=== PATIENT | male | born 1955 | race African-American/Black ===

== ENCOUNTER 2017-11-23 12:25 | Emergency (ER) | payer MEDICARE, MEDICAID ==
[~2017-11-23] VITALS: Ht 175.3 cm; Wt 71.7 kg
[2017-11-23] MEDS ORDERED: ALBUTEROL SULF8.5 GM INH ×2 (12:41→13:20)
[2017-11-23] MEDS ORDERED: FLOVENT2 PUFF1 INH (12:41)
--- NOTE | 2017-11-23 13:18 | Emergency Room Report ---
History of Present Illness General Chief Complaint: Upper Respiratory Illness Present Illness HPI 62 YO Male Pt. presents to the ED c/o Productive cough times one month with moderate sputum production. Patient reports history of COPD he denies cardiac history or swelling of the lower extremities. Patient reports intermittent fevers and chills. After multiple back to back episodes of coughing he will have some tenderness in the chest. Otherwise no pain at rest. Has required albuterol inhalers in the past. Denies CP, Palpitations, LOC, AMS, dizziness, Changes in Vision, Sensation, paresthesias, or a sudden severe headache. Allergies: Coded Allergies: No Known Allergies (Unverified , 11/23/17) Patient History Past Medical History: see triage record, COPD Past Surgical History: none Pertinent Family History: none Immunizations: UTD Reviewed Nursing Documentation: PMH: Agreed, PSxH: Agreed Nursing Documentation-PMH Hx Asthma: Yes Review of Systems All Other Systems: negative except mentioned in HPI Physical Exam Vital Signs Date Time Temp Pulse Resp B/P (MAP) Pulse Ox O2 Delivery O2 Flow Rate FiO2 11/23/17 12:35 61 16 123/75 98 Room Air Sp02 EP Interpretation: reviewed, normal General Appearance: no apparent distress, alert, GCS 15, non-toxic Head: normocephalic, atraumatic ENT: hearing grossly normal, normal pharynx, no angioedema, normal voice, TMs + canals normal, nasal congestion Neck: full range of motion, no meningismus, no bony tend, supple/symm/no masses Respiratory: chest non-tender, lungs clear, normal breath sounds, no respiratory distress, speaking full sentences Cardiovascular #1: regular rate, rhythm, no edema, normal capillary refill Musculoskeletal: back normal, gait/station normal, normal range of motion, non- tender Neurologic: alert, oriented x3, responsive, motor strength/tone normal, sensory intact, normal gait, speech normal Skin: normal color, no rash, warm/dry, well hydrated Medical Decision Making PA Attestation Dr. noel is my supervising Physician whom patient management has been discussed with. Diagnostic Impression: Primary Impression: Atypical pneumonia Additional Impression: COPD with acute bronchitis ER Course Pt. presents to the ED c/o Productive cough times one month with moderate sputum production. Patient reports history of COPD he denies cardiac history or swelling of the lower extremities. Patient reports intermittent fevers and chills. After multiple back to back episodes of coughing he will have some tenderness in the chest. Otherwise no pain at rest. Has required albuterol inhalers in the past. Denies CP, Palpitations, LOC, AMS, dizziness, Changes in Vision, Sensation, paresthesias, or a sudden severe headache. Ddx considered but are not limited to URI, pneumonia, PE, strep pharyngitis, meningitis, atypical pneumonia, COPD, emphysema just to name a few. Vital signs: Pt. is afebrile, the remaining VS are WNL H&PE are most consistent with URI- in the presence of chronic lung disease, minimal wheezes/Rhonchi . no meningeal signs, oropharynx is not involved. ORDERS: none required at this time, the diagnosis is clinical ED INTERVENTIONS: None required at this time. DISCHARGE: At this time pt. is stable for d/c to home. Will provide printed patient care instructions, and any necessary prescriptions. Care plan and follow up instructions have been discussed with the patient prior to discharge. Chest X-Ray Diagnostic Results Chest X-Ray Diagnostic Results : Chest X-Ray Ordered: Yes # of Views/Limited/Complete: 1 View Indication: Shortness of Breath EP Interpretation: Yes PA Xray: Interpretation reviewed, by supervising MD, and agrees with findings. Interpretation: no consolidation, no pneumothorax, no acute cardiopulmonary disease Impression: Other - COPD signs such as hyper-inflated lung space, and flattened diagphragm. Last Vital Signs Date Time Temp Pulse Resp B/P (MAP) Pulse Ox O2 Delivery O2 Flow Rate FiO2 11/23/17 12:35 61 16 123/75 98 Room Air Disposition: HOME, SELF-CARE Condition: Stable Scripts Levofloxacin* (LEVAQUIN*) 750 Mg Tablet 750 MG ORAL DAILY for 7 Days, #7 TAB Prov: Mai Randall P.A. 11/23/17 Albuterol Sulfate* (ALBUTEROL SULFATE MDI*) 8.5 Gm Hfa.aer.ad 2 PUFF INH Q6H, #1 INH 0 Refills Prov: Mai Randall P.A. 11/23/17 Guaifenesin (Guaifenesin) 1,200 Mg Tab.er.12h 1200 MG PO BID, #20 TAB Prov: Mai Randall P.A. 11/23/17 Codeine/Promethazine Hcl* (PROMETHAZINE-CODEINE SYRUP*) 118 Ml Syrup 5 ML ORAL Q6H Y for For Cough, #118 ML 0 Refills Prov: Mai Randall 11/23/17 Patient Instructions: Upper Respiratory Infection, Adult Additional Instructions: Take medications as directed. Follow up with a Primary Care Provider in 3-5 days, even if your symptoms have resolved. --Please review list of primary care clinics, if you do not already have a primary care provider Return sooner to ED if new symptoms occur, or current symptoms become worse. Do not drink alcohol, drive, or operate heavy machinery while taking Cough Syrup as this may cause drowsiness. - Please note that this Emergency Department Report was dictated using [employer] mobility [employer] technology software, occasionally this can lead to erroneous entry secondary to interpretation by the dictation equipment. Mai Randall Nov 23, 2017 13:18
[2017-11-23] MEDS ORDERED: LEVAQUIN750 MG ORAL (13:20)
[2017-11-23] MEDS ORDERED: GUAIFENESIN1200 MG PO (13:20)
[2017-11-23] MEDS ORDERED: PROMETHAZINE-C118 M1 ORAL (13:20)
[2017-11-23 13:25] VITALS: BP 120/76
--- NOTE | 2017-11-23 21:48 | Diagnostic Imaging Report ---
Indication: Chest pain Comparison: None A single view chest radiograph was obtained. Findings: Bones are slightly osteopenic. Heart size is normal. Lungs are clear. Fusion hardware noted within the lumbar spine. IMPRESSION: No acute disease
== END 2017-11-23 15:06 | disposition home or self-care (01) ==
LOC: EMR 13:01
DX: J18.9 Pneumonia, unspecified organism (principal); J20.9 Acute bronchitis, unspecified; J44.0 Chronic obstructive pulmonary disease with (acute) lower respiratory infection
CPT/HCPCS: 71045; 99283

== ENCOUNTER 2018-10-10 09:37 | Emergency (ER) | payer MEDICARE, MEDICAID ==
[~2018-10-10] VITALS: Ht 175.3 cm; Wt 72.6 kg
[~2018-10-10 09:37] MED LIST: ALBUTEROL SULF8.5 GM INH; FLOVENT2 PUFF1 INH; GUAIFENESIN1200 MG PO; LEVAQUIN750 MG ORAL; PROMETHAZINE-C118 M1 ORAL
[2018-10-10 09:47] VITALS: BP 131/86
[2018-10-10] MEDS ORDERED: Albuterol/Ipratropium 3ml neb HHN ONE ×2 (10:15→10:45)
[2018-10-10 10:27] VITALS: BP 131/86
[2018-10-10 11:30] VITALS: BP 135/87
[2018-10-10] MEDS ORDERED: ADULT WAL-100 MG/5 M ORAL (11:50)
[2018-10-10] MEDS ORDERED: ZITHROMAX250 MG ORAL (11:50)
[2018-10-10] MEDS ORDERED: PREDNISONE20 MG ORAL (11:50)
[2018-10-10] MEDS ORDERED: Albuterol ud Inhalation HHN ONE (12:00)
--- NOTE | 2018-10-10 12:19 | Emergency Room Report ---
History of Present Illness General Chief Complaint: Dyspnea/Respdistress Source: Patient Present Illness HPI Patient is a 63-year-old male presented after increased difficulty breathing. Patient gradual onset of symptoms. He reports having increased work of breathing. Patient reports the recently quitting smoking. He had prior history of COPD. He poorly takes multiple inhalers. He reports having increased chest tightness. He reports having similar symptoms in the past.Patient denies any fever. Allergies: Coded Allergies: No Known Allergies (Unverified , 11/23/17) Patient History Past Medical History: see triage record Reviewed Nursing Documentation: PMH: Agreed; PSxH: Agreed Nursing Documentation-PM Past Medical History: No History, Except For Hx Asthma: Yes Hx COPD: Yes - emphysema Review of Systems All Other Systems: negative except mentioned in HPI Physical Exam Vital Signs Date Time Temp Pulse Resp B/P (MAP) Pulse Ox O2 Delivery O2 Flow Rate FiO2 10/10/18 09:40 97.9 95 23 134/91 95 Room Air 10/10/18 10:24 21 Sp02 EP Interpretation: reviewed, normal General Appearance: normal inspection, alert, GCS 15, mild distress, Chronically Ill Head: atraumatic ENT: normal ENT inspection, hearing grossly normal, normal voice Neck: normal inspection, full range of motion, supple, no bony tend Respiratory: normal inspection, no respiratory distress, no retraction, no wheezing, wheezing Cardiovascular #1: regular rate, rhythm, no edema Gastrointestinal: normal inspection, normal bowel sounds, non tender, soft, no guarding, no hernia Genitourinary: no CVA tenderness Musculoskeletal: normal inspection, back normal, normal range of motion Neurologic: normal inspection, alert, oriented x3, responsive, brush hand III-XII nml as tested, motor strength/tone normal, speech normal Psychiatric: normal inspection, judgement/insight normal, mood/affect normal Skin: normal inspection, normal color, no rash Medical Decision Making Diagnostic Impression: Primary Impression: COPD exacerbation ER Course Patient presented for cough. Differential diagnosis included but was not limited to bronchitis, pneumonia, pulmonary embolism, pericarditis, asthma, foreign body. Patient has a benign exam and does not appear to require any laboratory testing at this time. Patient given breathing treatments with improvement in symptoms.The patient is advised to follow up with primary care doctor in 1-2 days. Patient is advised to return if any worsening condition or if any changes in status that are concerning. This report is dictated with [employer] furnace door tender software which may occasionally lead to discrepancies related to use of this software. Last Vital Signs Date Time Temp Pulse Resp B/P (MAP) Pulse Ox O2 Delivery O2 Flow Rate FiO2 10/10/18 11:56 89 15 100 Room Air 21 10/10/18 09:47 98.2 131/86 Status: improved Disposition: HOME, SELF-CARE Condition: Stable Scripts Azithromycin* (ZITHROMAX*) 250 Mg Tablet 250 MG ORAL DAILY, #6 TAB 0 Refills Take two tables once daily for 1 day, then one tablet once daily for 4 days. Prov: Joshua Mobley MD 10/10/18 Prednisone* (PREDNISONE*) 20 Mg Tablet 60 MG ORAL DAILY, #12 TAB Prov: Joshua Mobley MD 10/10/18 Guaifenesin* (ADULT WAL-TUSSIN*) 100 Mg/5 Ml Liquid 10 ML ORAL Q4H, #120 ML Prov: Joshua Mobley MD 10/10/18 Patient Instructions: Chronic Obstructive Pulmonary Disease Exacerbation Joshua Mobley MD Oct 10, 2018 12:19
[2018-10-10 12:26] VITALS: BP 128/87
== END 2018-10-10 12:26 | disposition home or self-care (01) ==
LOC: EMR 10:20
DX: J44.1 Chronic obstructive pulmonary disease with (acute) exacerbation (principal); Z87.891 Personal history of nicotine dependence
CPT/HCPCS: 94640; 94664; 99284; J7512; J7620

== ENCOUNTER 2018-11-02 12:39 | Inpatient (IN) | payer MEDICARE, MEDICAID ==
[~2018-11-02] VITALS: Ht 170.2 cm; Wt 72.6 kg
[~2018-11-02 12:39] MED LIST changes: +ADULT WAL-100 MG/5 M ORAL; +PREDNISONE20 MG ORAL; +ZITHROMAX250 MG ORAL
[2018-11-02 12:50] VITALS: BP 142/97
[2018-11-02] MEDS ORDERED: Albuterol/Ipratropium 3ml neb ONE (12:52)
--- NOTE | 2018-11-02 12:58 | Emergency Room Report ---
History of Present Illness General Chief Complaint: Dyspnea/Respdistress Source: Patient, Medical Record Present Illness HPI The patient is a 63-year-old male presented after increased difficulty breathing. Patient prior history of COPD. He reports having acute onset of worsening shortness of breath today. He denies any vomiting.Patient had increased nonproductive cough. He reported having increased shortness of breath for the past 1 hour. Allergies: Coded Allergies: No Known Allergies (Unverified , 11/23/17) Patient History Past Medical History: COPD Reviewed Nursing Documentation: PMH: Agreed; PSxH: Agreed Nursing Documentation-PMH Past Medical History: No History, Except For Hx Asthma: Yes Hx COPD: Yes - emphysema Review of Systems All Other Systems: negative except mentioned in HPI Physical Exam Vital Signs Date Time Temp Pulse Resp B/P (MAP) Pulse Ox O2 Delivery O2 Flow Rate FiO2 11/02/18 12:45 98.2 91 18 145/79 94 Room Air General Appearance: alert, GCS 15, moderate distress Eyes: bilateral eye PERRL ENT: hearing grossly normal, normal pharynx Neck: full range of motion, supple Respiratory: respiratory distress, accessory muscle use, wheezing Cardiovascular #1: normal peripheral pulses, regular rate, rhythm, no edema Gastrointestinal: normal inspection Musculoskeletal: normal inspection, back normal Neurologic: normal inspection, alert, oriented x3, responsive, heating worker III-XII nml as tested Psychiatric: normal inspection, judgement/insight normal Skin: normal inspection Medical Decision Making Diagnostic Impression: Primary Impression: COPD exacerbation ER Course Patient presented for shortness of breath. Differential included but was not limited to anemia, pneumonia, pneumothorax, myocardial infarction, pericardial effusion, congestive heart failure, acidosis. Because of complexity of patient' s case laboratory testing and imaging studies were ordered. Chest x-ray 1 view interpreted by radiology showed emphysematous changes without evidence of pneumonia. EKG showed normal sinus rhythm without acute ST or T wave changes. Patient was given breathing treatments as well as IV Solu-Medrol. Patient was subsequently noted to have improvement in his symptoms. Patient continued to have some wheezing and shortness of breath. Dr. Miguel Perera was contacted for inpatient management Labs Test 11/02/18 13:00 11/02/18 13:11 11/02/18 13:35 White Blood Count 5.6 K/UL (4.8-10.8) Red Blood Count 5.38 M/UL (4.70-6.10) Hemoglobin 14.6 G/DL (14.2-18.0) Hematocrit 46.2 % (42.0-52.0) Mean Corpuscular Volume 86 FL (80-99) Mean Corpuscular Hemoglobin 27.1 PG (27.0-31.0) Mean Corpuscular Hemoglobin Concent 31.6 G/DL (32.0-36.0) Red Cell Distribution Width 13.1 % (11.6-14.8) Platelet Count 203 K/UL (150-450) Mean Platelet Volume 7.9 FL (6.5-10.1) Neutrophils (%) (Auto) 45.1 % (45.0-75.0) Lymphocytes (%) (Auto) 38.5 % (20.0-45.0) Monocytes (%) (Auto) 8.0 % (1.0-10.0) Eosinophils (%) (Auto) 6.9 % (0.0-3.0) Basophils (%) (Auto) 1.5 % (0.0-2.0) Prothrombin Time 10.5 SEC (9.30-11.50) Prothromb Time International Ratio 1.0 (0.9-1.1) Activated Partial Thromboplast Time 27 SEC (23-33) Sodium Level 145 MMOL/L (136-145) Potassium Level 4.3 MMOL/L (3.5-5.1) Chloride Level 109 MMOL/L (98-107) Carbon Dioxide Level 26 MMOL/L (21-32) Anion Gap 10 mmol/L (5-15) Blood Urea Nitrogen 6 mg/dL (7-18) Creatinine 0.9 MG/DL (0.55-1.30) Estimat Glomerular Filtration Rate > 60 mL/min (>60) Glucose Level 106 MG/DL (74-106) Calcium Level 9.0 MG/DL (8.5-10.1) Total Bilirubin 0.7 MG/DL (0.2-1.0) Aspartate Amino Transf (AST/SGOT) 17 U/L (15-37) Alanine Aminotransferase (ALT/SGPT) 23 U/L (12-78) Alkaline Phosphatase 80 U/L (46-116) Troponin I 0.000 ng/mL (0.000-0.056) Total Protein 7.7 G/DL (6.4-8.2) Albumin 3.7 G/DL (3.4-5.0) Globulin 4.0 g/dL Albumin/Globulin Ratio 0.9 (1.0-2.7) Arterial Blood pH 7.462 (7.350-7.450) Arterial Blood Partial Pressure CO2 32.3 mmHg (35.0-45.0) Arterial Blood Partial Pressure O2 99.1 mmHg (75.0-100.0) Arterial Blood HCO3 22.6 mmol/L (22.0-26.0) Arterial Blood Oxygen Saturation 97.8 % (95-100) Arterial Blood Base Excess -0.4 (-2-2) Rudolph Test Positive Urine Color Pale yellow Urine Appearance Clear Urine pH 6 (4.5-8.0) Urine Specific [place] 1.015 (1.005-1.035) Urine Protein Negative (NEGATIVE) Urine Glucose (UA) Negative (NEGATIVE) Urine Ketones Negative (NEGATIVE) Urine Blood Negative (NEGATIVE) Urine Nitrite Negative (NEGATIVE) Urine Bilirubin Negative (NEGATIVE) Urine Urobilinogen Normal MG/DL (0.0-1.0) Urine Leukocyte Esterase 1+ (NEGATIVE) Urine RBC 0 /HPF (0 - 0) Urine WBC 0-2 /HPF (0 - 0) Urine Squamous Epithelial Cells Occasional /LPF Urine Bacteria Occasional /HPF (NONE) Last Vital Signs Date Time Temp Pulse Resp B/P (MAP) Pulse Ox O2 Delivery O2 Flow Rate FiO2 11/02/18 12:45 98.2 91 18 145/79 94 Room Air Status: improved Disposition: ADMITTED INPATIENT Condition: Stable Joshua Mobley MD Nov 02, 2018 12:58
[2018-11-02] MEDS ORDERED: Albuterol/Ipratropium 3ml neb HHN ONE ×2 (13:00→14:15)
[2018-11-02] MEDS ORDERED: UNOBMED (13:00)
[2018-11-02] MEDS ORDERED: Solu-MEDROL 125mg Inj IVP ONE (13:00)
[2018-11-02 13:31] LABS: BASOPHILS % (AUTO) 1.5 % (0.0-2.0); EOSINOPHILS % (AUTO) 6.9 % (0.0-3.0); HEMATOCRIT 46.2 % (42.0-52.0); HEMOGLOBIN 14.6 G/DL (14.2-18.0); LYMPHOCYTES % (AUTO) 38.5 % (20.0-45.0); MEAN CORPUSCULAR VOLUME 86 FL (80-99); NEUTROPHILS % (AUTO) 45.1 % (45.0-75.0); PLATELET COUNT 203 K/UL (150-450); RED BLOOD COUNT 5.38 M/UL (4.70-6.10); RED CELL DISTRIBUTION WIDTH 13.1 % (11.6-14.8); WHITE BLOOD COUNT 5.6 K/UL (4.8-10.8)
[2018-11-02 13:48] LABS: ANION GAP 10 mmol/L (5-15); BLOOD UREA NITROGEN 6 mg/dL (7-18); CARBON DIOXIDE 26 MMOL/L (21-32); CHLORIDE 109 MMOL/L (98-107); CREATININE 0.9 MG/DL (0.55-1.30); POTASSIUM 4.3 MMOL/L (3.5-5.1); SODIUM 145 MMOL/L (136-145)
[2018-11-02 13:52] LABS: ALANINE AMINOTRANSFERASE 23 U/L (12-78); ALBUMIN 3.7 G/DL (3.4-5.0); ALBUMIN/GLOBULIN RATIO 0.9 (1.0-2.7); ALKALINE PHOSPHATASE 80 U/L (46-116); ASPARTATE AMINO TRANSFERASE 17 U/L (15-37); BILIRUBIN,TOTAL 0.7 MG/DL (0.2-1.0)
[2018-11-02 14:06] LABS: APPEARANCE,URINE CLEAR; BILIRUBIN, URINE NEGATIVE (NEGATIVE); COLOR,URINE PALE YELLOW; GLUCOSE, URINE (UA) NEGATIVE (NEGATIVE); KETONES,URINE NEGATIVE (NEGATIVE); LEUKOCYTE ESTERASE ,URINE 1+ (NEGATIVE); NITRITE,URINE NEGATIVE (NEGATIVE); PH,URINE 6 (4.5-8.0); PROTEIN,URINE NEGATIVE (NEGATIVE); UROBILINOGEN,URINE NORMAL MG/DL (0.0-1.0)
[2018-11-02] MEDS ORDERED: Albuterol 90mcg Inhaler 8gm INH ONE (14:15)
--- NOTE | 2018-11-02 14:36 | Diagnostic Imaging Report ---
Indication: Shortness of breath Technique: One view of the chest Comparison: 11/23/2017 Findings: Lungs and pleural spaces are clear. Heart size is normal there is a surgical hardware in the upper lumbar spine . No significant interim change. Impression: No acute process
[2018-11-02 15:00] VITALS: BP 120/90
[2018-11-02 17:00] VITALS: BP 124/90
[2018-11-02] MEDS ORDERED: ROXICODONE30 M1 ORAL (17:47)
[2018-11-02] MEDS ORDERED: ANORO ELLIPTA1 EACH PO (17:47)
[2018-11-02] MEDS ORDERED: OXYCODONE HCL10 MG ORAL (17:47)
[2018-11-02] MEDS ORDERED: PREDNISONE10 MG ORAL (17:47)
[2018-11-02 18:30] VITALS: BP 149/86
[2018-11-02] MEDS ORDERED: Albuterol/Ipratropium 3ml neb HHN PRN (18:30)
[2018-11-02] MEDS: Albuterol/Ipratropium 3ml neb HHN SCH (20:38)
[2018-11-02] MEDS: Heparin 5000 units/ml inj SUBQ SCH (21:17)
[2018-11-02] MEDS ORDERED: Norco 5mg/325mg tab ORAL PRN (23:45)
[2018-11-03] MEDS: Solu-MEDROL 40mg Inj IVP SCH ×5 (00:05→23:55)
--- NOTE | 2018-11-03 03:15 | History and Physical Report ---
DATE OF ADMISSION: 11/02/2018 HISTORY OF PRESENT ILLNESS: The patient is admitted for COPD exacerbation breathing treatment. The patient complained of shortness of breath for two weeks with wheezing, has history of COPD and also worsening productive cough, has a long history of smoking in the past as well as a history of drug and alcohol abuse in the past. The patient does have shortness of breath worsening with cough, worsening wheezing and worsening productive cough, admitted for COPD exacerbation. PAST MEDICAL HISTORY: Significant for COPD, GERD. PAST SURGICAL HISTORY: Left hip replacement, back surgery, hernia repair, left knee surgery. MEDICATIONS: Fluticasone and prednisone at times p.r.n., albuterol inhaler. ALLERGIES: No known allergies. SOCIAL HISTORY: History of smoking, history of drug abuse, history of alcohol abuse. FAMILY HISTORY: Noncontributory. REVIEW OF SYSTEMS: HEENT: Denies headaches. RESPIRATORY: Reports shortness of breath and productive cough for two weeks and wheezing for two weeks. CARDIOVASCULAR: Denies chest pain. GASTROINTESTINAL: Reports heartburn. Denies nausea, vomiting, or diarrhea. EXTREMITIES: Does have chronic pain syndrome. CENTRAL NERVOUS SYSTEMS: Denies change in vision or speech pattern. PHYSICAL EXAMINATION: VITAL SIGNS: Temperature 97, pulse 75, and blood pressure 124/90. HEENT: PERRLA. NECK: Supple. No lymphadenopathy. CHEST: Bibasilar wheezing. CARDIOVASCULAR: Regular rate and rhythm. No murmurs or extra sounds. GASTROINTESTINAL: Soft, nontender. EXTREMITIES: No edema. Reflexes equal on both sides. Moves all four extremities. LABORATORY AND DIAGNOSTIC DATA: Chest x-ray shows hyperinflation. WBC of 5.6, hemoglobin of 14.6, and platelets of 203. Sodium 145, potassium 4.3, BUN of 6, creatinine of 0.9, and glucose of 106. ASSESSMENT/PLAN: 1. Chronic obstructive pulmonary disease exacerbation. 2. Respiratory insufficiency. 3. Shortness of breath. I have asked Dr. Renteria, Dr. Mann, Dr. Julian Miller to see the patient for the above condition, treatment of COPD exacerbation. Antibiotics per Dr. Julian Miller. Miguel Wyman M.D. DR: Felisa JOB#: [id number] CC:
[2018-11-03] MEDS: Albuterol/Ipratropium 3ml neb HHN SCH ×6 (03:47→23:16)
[2018-11-03 08:00] VITALS: BP 137/89
[2018-11-03] MEDS: Heparin 5000 units/ml inj SUBQ SCH ×2 (09:00→20:41)
--- NOTE | 2018-11-03 09:03 | Consultation ---
History of Present Illness General Date patient seen: Nov 03, 2018 Chief Complaint: Present Illness Allergies: Coded Allergies: No Known Allergies (Unverified , 11/23/17) Medication History Scheduled Albuterol Sulfate* (Albuterol Sulfate Mdi*), 2 PUFF INH Q4H, (Reported) Fluticasone Propionate (Flovent Hfa), 2 PUFFS INH BID, (Reported) Umeclidinium Brm/Vilanterol Tr (Anoro Ellipta 62.5-25 Mcg INH), 1 INH PO DAILY, (Reported) Scheduled PRN Oxycodone Hcl* (Roxicodone*), 30 MG ORAL Q6H PRN for For Pain, (Reported) Miscellaneous Medications Prednisone* (Prednisone*), 10 MG ORAL, (Reported) Discontinued Medications Azithromycin* (Zithromax*), 250 MG ORAL DAILY Discontinued Reason: Therapy completed Codeine/Promethazine Hcl* (Promethazine-Codeine Syrup*), 5 ML ORAL Q6H PRN for For Cough Discontinued Reason: Therapy completed Guaifenesin (Guaifenesin), 1,200 MG PO BID Discontinued Reason: Therapy completed Guaifenesin* (Adult Wal-Tussin*), 10 ML ORAL Q4H Discontinued Reason: Therapy completed Levofloxacin* (Levaquin*), 750 MG ORAL DAILY Discontinued Reason: Therapy completed Oxycodone Hcl* (Oxycodone Hcl*), 10 MG ORAL Q6H PRN for For Pain, (Reported) Discontinued Reason: Prescription changed Prednisone* (Prednisone*), 60 MG ORAL DAILY Discontinued Reason: Medication dose changed Patient History Healthcare decision maker Resuscitation status Full Code Advanced Directive on File No Physical Exam Last 24 Hour Vital Signs Date Time Temp Pulse Resp B/P (MAP) Pulse Ox O2 Delivery O2 Flow Rate FiO2 11/03/18 07:13 87 19 100 Room Air 11/03/18 07:02 82 17 99 Room Air 11/03/18 04:27 14 11/03/18 03:53 88 20 99 Room Air 21 11/03/18 03:43 92 20 97 Room Air 11/03/18 00:11 94 11/02/18 22:56 Nasal Cannula 2.0 11/02/18 20:47 98 20 99 Room Air 21 11/02/18 20:33 103 22 96 Room Air 21 11/02/18 19:52 85 11/02/18 18:34 75 11/02/18 18:30 98.2 82 18 149/86 (107) 96 11/02/18 17:54 97.0 75 16 124/90 98 Room Air 21 11/02/18 17:00 75 16 124/90 98 Room Air 11/02/18 15:00 70 25 120/90 96 Room Air 11/02/18 14:26 22 100 Room Air 21 11/02/18 13:24 24 99 Room Air 21 11/02/18 13:10 24 98 Room Air 21 11/02/18 13:10 24 Room Air 21 11/02/18 12:50 97.0 88 37 142/97 100 Room Air 11/02/18 12:50 88 37 Room Air 11/02/18 12:45 98.2 91 18 145/79 94 Room Air Intake and Output 11/02/18 11/03/18 19:00 07:00 Intake Total 100 ml Balance 100 ml Intake Oral 0 ml IV Total 100 ml # Voids 1 1 Laboratory Tests Test 11/02/18 13:00 11/02/18 13:11 11/02/18 13:35 White Blood Count 5.6 K/UL (4.8-10.8) Red Blood Count 5.38 M/UL (4.70-6.10) Hemoglobin 14.6 G/DL (14.2-18.0) Hematocrit 46.2 % (42.0-52.0) Mean Corpuscular Volume 86 FL (80-99) Mean Corpuscular Hemoglobin 27.1 PG (27.0-31.0) Mean Corpuscular Hemoglobin Concent 31.6 G/DL (32.0-36.0) L Red Cell Distribution Width 13.1 % (11.6-14.8) Platelet Count 203 K/UL (150-450) Mean Platelet Volume 7.9 FL (6.5-10.1) Neutrophils (%) (Auto) 45.1 % (45.0-75.0) Lymphocytes (%) (Auto) 38.5 % (20.0-45.0) Monocytes (%) (Auto) 8.0 % (1.0-10.0) Eosinophils (%) (Auto) 6.9 % (0.0-3.0) H Basophils (%) (Auto) 1.5 % (0.0-2.0) Prothrombin Time 10.5 SEC (9.30-11.50) Prothromb Time International Ratio 1.0 (0.9-1.1) Activated Partial Thromboplast Time 27 SEC (23-33) Sodium Level 145 MMOL/L (136-145) Potassium Level 4.3 MMOL/L (3.5-5.1) Chloride Level 109 MMOL/L (98-107) H Carbon Dioxide Level 26 MMOL/L (21-32) Anion Gap 10 mmol/L (5-15) Blood Urea Nitrogen 6 mg/dL (7-18) L Creatinine 0.9 MG/DL (0.55-1.30) Estimat Glomerular Filtration Rate > 60 mL/min (>60) Glucose Level 106 MG/DL (74-106) Calcium Level 9.0 MG/DL (8.5-10.1) Total Bilirubin 0.7 MG/DL (0.2-1.0) Aspartate Amino Transf (AST/SGOT) 17 U/L (15-37) Alanine Aminotransferase (ALT/SGPT) 23 U/L (12-78) Alkaline Phosphatase 80 U/L (46-116) Troponin I 0.000 ng/mL (0.000-0.056) Total Protein 7.7 G/DL (6.4-8.2) Albumin 3.7 G/DL (3.4-5.0) Globulin 4.0 g/dL Albumin/Globulin Ratio 0.9 (1.0-2.7) L Arterial Blood pH 7.462 (7.350-7.450) Arterial Blood Partial Pressure CO2 32.3 mmHg (35.0-45.0) L Arterial Blood Partial Pressure O2 99.1 mmHg (75.0-100.0) Arterial Blood HCO3 22.6 mmol/L (22.0-26.0) Arterial Blood Oxygen Saturation 97.8 % (95-100) Arterial Blood Base Excess -0.4 (-2-2) Rudolph Test Positive Urine Color Pale yellow Urine Appearance Clear Urine pH 6 (4.5-8.0) Urine Specific [place] 1.015 (1.005-1.035) Urine Protein Negative (NEGATIVE) Urine Glucose (UA) Negative (NEGATIVE) Urine Ketones Negative (NEGATIVE) Urine Blood Negative (NEGATIVE) Urine Nitrite Negative (NEGATIVE) Urine Bilirubin Negative (NEGATIVE) Urine Urobilinogen Normal MG/DL (0.0-1.0) Urine Leukocyte Esterase 1+ (NEGATIVE) H Urine RBC 0 /HPF (0 - 0) Urine WBC 0-2 /HPF (0 - 0) Urine Squamous Epithelial Cells Occasional /LPF Urine Bacteria Occasional /HPF (NONE) Microbiology Date/Time Source Procedure Growth Status 11/02/18 13:00 Nasal Nares Influenza Types A,B Antigen (LACY) - Final Complete Height (Feet): 5 Height (Inches): 7.00 Weight (Pounds): 160 Medications Current Medications Medications (Trade) Dose Ordered Sig/Santos Route PRN Reason Start Time Stop Time Status Last Admin Dose Admin Acetaminophen (Tylenol) 650 mg Q6H PRN ORAL Mild Pain/Temp > 100.5 11/02/18 18:15 12/02/18 18:14 Acetaminophen/ Hydrocodone Bitart ([place] 5/325) 1 tab Q4H PRN ORAL Moderate Pain (Pain Scale 4-6) 11/02/18 23:45 11/09/18 23:44 11/03/18 00:11 Albuterol/ Ipratropium (Albuterol/ Ipratropium) 3 ml Q4H PRN HHN Shortness of Breath 11/02/18 18:30 11/07/18 18:29 Albuterol/ Ipratropium (Albuterol/ Ipratropium) 3 ml Q4HRT HHN 11/02/18 23:00 11/07/18 22:59 11/03/18 07:02 Doxycycline Monohydrate (Vibramycin) 100 mg EVERY 12 HOURS ORAL 11/02/18 21:00 11/09/18 20:59 11/02/18 21:16 Heparin Sodium (Porcine) (Heparin 5000 units/ml) 5,000 units EVERY 12 HOURS SUBQ 11/02/18 21:00 12/02/18 20:59 11/02/18 21:17 Methylprednisolone Sodium Succinate (Solu-MEDROL) 40 mg EVERY 6 HOURS IVP 11/03/18 00:00 12/03/18 00:00 11/03/18 05:36 Assessment/Plan Assessment/Plan (1) Lumbar DDD (2) Lumbar Spondylosis (3) Lumbar Radiculopathy (4) Left hip pain h/o THR seen dictated Eladio Alexandra Nov 03, 2018 09:03
[2018-11-03] MEDS: HYDROcodone/Acetamin 10/325 tab ORAL PRN ×2 (09:22→20:02)
[2018-11-03 12:00] VITALS: BP 149/79
--- NOTE | 2018-11-03 14:20 | Consultation ---
History of Present Illness General Chief Complaint: Dyspnea/Respdistress Present Illness HPI 63 yo male with hx of anxiety patient complained of shortness of breath for two weeks with wheezing, has history of COPD and also worsening productive cough, has a long history of smoking in the past as well as a history of drug and alcohol abuse in the past. the pt cont to have anxiety and mood swings. the pt has cognitive impairment which is mild. no si/hi, the pt c/o pain. he has poor insight. reluctant to take psych meds Allergies: Coded Allergies: No Known Allergies (Unverified , 11/23/17) Medication History Scheduled Albuterol Sulfate* (Albuterol Sulfate Mdi*), 2 PUFF INH Q4H, (Reported) Fluticasone Propionate (Flovent Hfa), 2 PUFFS INH BID, (Reported) Umeclidinium Brm/Vilanterol Tr (Anoro Ellipta 62.5-25 Mcg INH), 1 INH PO DAILY, (Reported) Scheduled PRN Oxycodone Hcl* (Roxicodone*), 30 MG ORAL Q6H PRN for For Pain, (Reported) Miscellaneous Medications Prednisone* (Prednisone*), 10 MG ORAL, (Reported) Discontinued Medications Azithromycin* (Zithromax*), 250 MG ORAL DAILY Discontinued Reason: Therapy completed Codeine/Promethazine Hcl* (Promethazine-Codeine Syrup*), 5 ML ORAL Q6H PRN for For Cough Discontinued Reason: Therapy completed Guaifenesin (Guaifenesin), 1,200 MG PO BID Discontinued Reason: Therapy completed Guaifenesin* (Adult Wal-Tussin*), 10 ML ORAL Q4H Discontinued Reason: Therapy completed Levofloxacin* (Levaquin*), 750 MG ORAL DAILY Discontinued Reason: Therapy completed Oxycodone Hcl* (Oxycodone Hcl*), 10 MG ORAL Q6H PRN for For Pain, (Reported) Discontinued Reason: Prescription changed Prednisone* (Prednisone*), 60 MG ORAL DAILY Discontinued Reason: Medication dose changed Patient History History Provided By: Patient, Medical Record, PMD Healthcare decision maker Resuscitation status Full Code Advanced Directive on File No Past Medical/Surgical History Past Medical/Surgical History: (1) Dyspnea (2) COPD exacerbation Review of Systems Psychiatric: Reports: anxiety, emotional problems Physical Exam General Appearance: no apparent distress, alert, mild distress Neurologic: oriented x 3, responsive, depressed affect Last 24 Hour Vital Signs Date Time Temp Pulse Resp B/P (MAP) Pulse Ox O2 Delivery O2 Flow Rate FiO2 11/03/18 12:00 101 11/03/18 11:41 84 17 99 Room Air 21 11/03/18 11:31 85 22 99 Room Air 21 11/03/18 09:00 Room Air 11/03/18 08:00 101 11/03/18 08:00 97.5 92 18 137/89 (105) 96 11/03/18 07:13 87 19 100 Room Air 21 11/03/18 07:02 82 17 99 Room Air 21 11/03/18 04:27 14 11/03/18 03:53 88 20 99 Room Air 21 11/03/18 03:43 92 20 97 Room Air 21 11/03/18 00:11 94 11/02/18 22:56 Nasal Cannula 2.0 11/02/18 20:47 98 20 99 Room Air 21 11/02/18 20:33 103 22 96 Room Air 21 11/02/18 19:52 85 11/02/18 18:34 75 11/02/18 18:30 98.2 82 18 149/86 (107) 96 11/02/18 17:54 97.0 75 16 124/90 98 Room Air 21 11/02/18 17:00 75 16 124/90 98 Room Air 11/02/18 15:00 70 25 120/90 96 Room Air 11/02/18 14:26 22 100 Room Air 21 Intake and Output 11/02/18 11/03/18 19:00 07:00 Intake Total 100 ml Balance 100 ml Intake Oral 0 ml IV Total 100 ml # Voids 1 1 Height (Feet): 5 Height (Inches): 7.00 Weight (Pounds): 160 Medications Current Medications Medications (Trade) Dose Ordered Sig/Santos Route PRN Reason Start Time Stop Time Status Last Admin Dose Admin Acetaminophen (Tylenol) 650 mg Q6H PRN ORAL Mild Pain/Temp > 100.5 11/02/18 18:15 12/02/18 18:14 Acetaminophen/ Hydrocodone Bitart ([place] 10/325) 1 tab Q4H PRN ORAL For moderate Pain 11/03/18 09:15 11/10/18 09:14 11/03/18 09:22 Albuterol/ Ipratropium (Albuterol/ Ipratropium) 3 ml Q4H PRN HHN Shortness of Breath 11/02/18 18:30 11/07/18 18:29 Albuterol/ Ipratropium (Albuterol/ Ipratropium) 3 ml Q4HRT HHN 11/02/18 23:00 11/07/18 22:59 11/03/18 11:30 Doxycycline Monohydrate (Vibramycin) 100 mg EVERY 12 HOURS ORAL 11/02/18 21:00 11/09/18 20:59 11/03/18 09:15 Heparin Sodium (Porcine) (Heparin 5000 units/ml) 5,000 units EVERY 12 HOURS SUBQ 11/02/18 21:00 12/02/18 20:59 11/02/18 21:17 Methylprednisolone Sodium Succinate (Solu-MEDROL) 40 mg EVERY 6 HOURS IVP 11/03/18 00:00 12/03/18 00:00 11/03/18 12:11 Assessment/Plan Problem List: (1) anxiety d/o (2) Polysubstance dependence ICD Codes: F19.20 - Other psychoactive substance dependence, uncomplicated SNOMED: 05893304 Status: unchanged Assessment/Plan the pt was provided with ro/st ativan prn the pt was educated about smoking risks Dmitry Meza MD Nov 03, 2018 14:20
[2018-11-03 16:00] VITALS: BP 132/88
--- NOTE | 2018-11-03 18:01 | Cardiology Report ---
APPROVED REPORT EKG Measurement Heart [id number] Normal sinus rhythm Normal ECG
[2018-11-03 20:00] VITALS: BP 144/90
--- NOTE | 2018-11-03 21:27 | General Progress Note ---
Assessment/Plan Problem List: (1) COPD exacerbation ICD Codes: J44.1 - Chronic obstructive pulmonary disease with (acute) exacerbation SNOMED: 105836120 (2) Polysubstance dependence ICD Codes: F19.20 - Other psychoactive substance dependence, uncomplicated SNOMED: 43546632 (3) anxiety d/o (4) Dyspnea ICD Codes: R06.00 - Dyspnea, unspecified SNOMED: 591895409 Status: progressing Assessment/Plan copd exac nebs steriod per pulmonary still wheezing still has sob Subjective Respiratory: Reports: shortness of breath, SOB with excertion, wheezing Allergies: Coded Allergies: No Known Allergies (Unverified , 11/23/17) Objective Last 24 Hour Vital Signs Date Time Temp Pulse Resp B/P (MAP) Pulse Ox O2 Delivery O2 Flow Rate FiO2 11/03/18 20:05 93 20 99 Room Air 21 11/03/18 20:00 98.4 86 18 144/90 (108) 96 11/03/18 20:00 86 11/03/18 19:56 92 20 Room Air 21 11/03/18 19:55 92 20 98 Room Air 21 11/03/18 16:00 97.1 101 20 132/88 (103) 99 11/03/18 16:00 99 11/03/18 15:35 85 21 99 Room Air 21 11/03/18 15:25 89 21 99 Room Air 21 11/03/18 12:00 98.0 99 20 149/79 (102) 95 11/03/18 12:00 101 11/03/18 11:41 84 17 99 Room Air 21 11/03/18 11:31 85 22 99 Room Air 21 11/03/18 09:00 Room Air 11/03/18 08:00 101 11/03/18 08:00 97.5 92 18 137/89 (105) 96 11/03/18 07:13 87 19 100 Room Air 21 11/03/18 07:02 82 17 99 Room Air 21 11/03/18 04:27 14 11/03/18 03:53 88 20 99 Room Air 21 11/03/18 03:43 92 20 97 Room Air 21 11/03/18 00:11 94 11/02/18 22:56 Nasal Cannula 2.0 Intake and Output 11/02/18 11/03/18 18:59 06:59 Intake Total 100 ml Balance 100 ml Intake Oral 0 ml IV Total 100 ml # Voids 1 1 Height (Feet): 5 Height (Inches): 7.00 Weight (Pounds): 160 Neck: supple Cardiovascular: normal rate Respiratory/Chest: expiratory wheezing Miguel Wyman MD Nov 03, 2018 21:27
--- NOTE | 2018-11-03 23:25 | Pulmonology Progress Note ---
Assessment/Plan Assessment/Plan Pulmonary Consultation (For Dr Mann) HPI The patient is a 63-year-old male presented after increased difficulty breathing. Patient prior history of COPD. He reports having acute onset of worsening shortness of breath today. He denies any vomiting. No chest pain, no hemoptysis Allergies: No Known Allergies Past Medical History: COPD/Asthma, GERD Hx Asthma: Yes Hx COPD: Yes - emphysema Physical Exam HEENT: NCAT, JVP 6cm, moist mm Chest: Reduced BS bilaterally Heart: Hs1, Hs2, RRR Abdomen: SNTND Extrem: Normal DIRECTOR OF ACCOUNTS PAYABLE: Intact Labs noted CXR: nil acute Impression: COPD Exaccerbation GERD Plan: Continue IV Steroids HHN O2 PRN PPX Subjective ROS Limited/Unobtainable: No Respiratory: Reports: shortness of breath Allergies: Coded Allergies: No Known Allergies (Unverified , 11/23/17) Objective Last 24 Hour Vital Signs Date Time Temp Pulse Resp B/P (MAP) Pulse Ox O2 Delivery O2 Flow Rate FiO2 11/03/18 23:16 102 20 97 Room Air 21 11/03/18 21:00 Room Air 11/03/18 20:05 93 20 99 Room Air 21 11/03/18 20:00 98.4 86 18 144/90 (108) 96 11/03/18 20:00 86 11/03/18 19:56 92 20 Room Air 21 11/03/18 19:55 92 20 98 Room Air 21 11/03/18 16:00 97.1 101 20 132/88 (103) 99 11/03/18 16:00 99 11/03/18 15:35 85 21 99 Room Air 21 11/03/18 15:25 89 21 99 Room Air 21 11/03/18 12:00 98.0 99 20 149/79 (102) 95 11/03/18 12:00 101 11/03/18 11:41 84 17 99 Room Air 21 11/03/18 11:31 85 22 99 Room Air 21 11/03/18 09:00 Room Air 11/03/18 08:00 101 11/03/18 08:00 97.5 92 18 137/89 (105) 96 11/03/18 07:13 87 19 100 Room Air 21 11/03/18 07:02 82 17 99 Room Air 21 12/19/18 04:27 14 11/03/18 03:53 88 20 99 Room Air 21 11/03/18 03:43 92 20 97 Room Air 21 11/03/18 00:11 94 Intake and Output 11/02/18 11/03/18 18:59 06:59 Intake Total 100 ml Balance 100 ml Intake Oral 0 ml IV Total 100 ml # Voids 1 1 Microbiology Date/Time Source Procedure Growth Status 11/02/18 13:00 Nasal Nares Influenza Types A,B Antigen (LACY) - Final Complete Current Medications Medications (Trade) Dose Ordered Sig/Santos Route PRN Reason Start Time Stop Time Status Last Admin Dose Admin Acetaminophen (Tylenol) 650 mg Q6H PRN ORAL Mild Pain/Temp > 100.5 11/02/18 18:15 12/02/18 18:14 Acetaminophen/ Hydrocodone Bitart ([place] 10/325) 1 tab Q4H PRN ORAL For moderate Pain 11/03/18 09:15 11/10/18 09:14 11/03/18 20:02 Albuterol/ Ipratropium (Albuterol/ Ipratropium) 3 ml Q4H PRN HHN Shortness of Breath 11/02/18 18:30 11/07/18 18:29 Albuterol/ Ipratropium (Albuterol/ Ipratropium) 3 ml Q4HRT HHN 11/02/18 23:00 11/07/18 22:59 11/03/18 23:16 Doxycycline Monohydrate (Vibramycin) 100 mg EVERY 12 HOURS ORAL 11/02/18 21:00 11/09/18 20:59 11/03/18 20:39 Heparin Sodium (Porcine) (Heparin 5000 units/ml) 5,000 units EVERY 12 HOURS SUBQ 11/02/18 21:00 12/02/18 20:59 11/03/18 20:41 Methylprednisolone Sodium Succinate (Solu-MEDROL) 40 mg EVERY 6 HOURS IVP 11/03/18 00:00 12/03/18 00:00 11/03/18 17:56 David Schwartz MD Nov 03, 2018 23:25
[2018-11-04] VITALS: BP 156/74
--- NOTE | 2018-11-04 | Consultation ---
DATE OF CONSULTATION: 11/03/2018 INFECTIOUS DISEASE CONSULTATION CONSULTING PHYSICIAN: Julian Miller M.D. PRIMARY ATTENDING PHYSICIAN: Miguel Wyman M.D. REASON FOR CONSULT: Chronic obstructive pulmonary disease exacerbation. HISTORY OF PRESENT ILLNESS: The patient is a 63-year-old male, admitted yesterday because of shortness of breath. The patient has history of chronic obstructive pulmonary disease. Shortness of breath is acute onset. It started yesterday. The patient did not have any fever or significant coughing. PAST MEDICAL HISTORY: Significant for COPD, emphysema, had left hip replacement after knee ligament surgery, had hernia repair, and has had two back surgeries. MEDICATIONS: Hydrocodone, Solu-Medrol, albuterol ipratropium inhaler, doxycycline, heparin, and Tylenol. ALLERGIES: No known drug allergies. SOCIAL HISTORY: The patient is single. Extensive history of smoking, quit three months ago. He has history of drug and alcohol abuse, quit years ago. REVIEW OF SYSTEMS: No fever. No chills. No runny nose. No sore throat. Shortness of breath that is more with exertion. No abdominal pain. No problem passing urine. VACCINATION HISTORY: The patient states that he had flu shots and pneumonia vaccine. PHYSICAL EXAMINATION: VITAL SIGNS: Temperature 99.5, pulse 84, and blood pressure 137/89. GENERAL APPEARANCE: No acute distress. HEAD AND NECK: [place] conjunctiva. No oral lesion. HEART: normal rate. LUNGS: Clear with decreased sounds bilaterally. ABDOMEN: Soft and nontender. EXTREMITIES: He has no edema. LABORATORY AND DIAGNOSTIC DATA: Labs, UA was negative for nitrites, , positive for leukocyte esterase, and wbc's 0 to 2. WBC 5.6, hemoglobin 14.6, hematocrit 46.2, and platelets 203,000. Chest x-ray, no acute process. IMPRESSION: Chronic obstructive pulmonary disease exacerbation. The patient has history of emphysema. He has history of multiple surgeries including left hip replacement and back surgery. RECOMMENDATIONS: Continue with doxycycline. We will follow up the cultures. At the end of my exam, I thank, Dr. Wyman, for involving me in the care of this patient. Julian Miller M.D. DR: BROOKS JOB#: [id number] CC: LETICIA
[2018-11-04] MEDS: Albuterol/Ipratropium 3ml neb HHN SCH ×4 (03:40→14:58)
[2018-11-04 04:00] VITALS: BP 117/96
[2018-11-04] MEDS: Solu-MEDROL 40mg Inj IVP SCH ×2 (05:33→12:58)
[2018-11-04 08:00] VITALS: BP 122/74
--- NOTE | 2018-11-04 08:48 | General Progress Note ---
Assessment/Plan Assessment/Plan (1) Lumbar DDD (2) Lumbar Spondylosis (3) Lumbar Radiculopathy (4) Left hip pain h/o THR Patient will be continued on [place] D/w Dr. Viera and he concurred. Subjective Date patient seen: Nov 04, 2018 Time patient seen: 07:30 - am Constitutional: Reports: no symptoms HEENT: Reports: no symptoms Cardiovascular: Reports: no symptoms Respiratory: Reports: wheezing Gastrointestinal/Abdominal: Reports: no symptoms Genitourinary: Reports: no symptoms Endocrine: Reports: no symptoms Hematologic/Lymphatic: Reports: no symptoms Allergies: Coded Allergies: No Known Allergies (Unverified , 11/23/17) Subjective Patient is in bed continues to c/o chronic pain in his back and left hip. He has taken two doses of norco in the last 24hrs. No new complaints at this time. Objective Last 24 Hour Vital Signs Date Time Temp Pulse Resp B/P (MAP) Pulse Ox O2 Delivery O2 Flow Rate FiO2 11/04/18 08:02 89 20 98 Room Air 21 11/04/18 08:01 87 20 Room Air 21 11/04/18 07:57 87 20 97 Room Air 21 11/04/18 04:00 94 11/04/18 04:00 97.3 90 18 117/96 (103) 97 11/04/18 03:50 90 18 99 Room Air 21 11/04/18 03:40 91 18 96 Room Air 21 11/04/18 00:00 92 11/04/18 00:00 97.9 88 18 156/74 (101) 100 11/03/18 23:26 101 20 99 Room Air 21 11/03/18 23:16 102 20 97 Room Air 21 11/03/18 21:00 Room Air 11/03/18 20:05 93 20 99 Room Air 21 11/03/18 20:00 98.4 86 18 144/90 (108) 96 11/03/18 20:00 86 11/03/18 19:56 92 20 Room Air 21 11/03/18 19:55 92 20 98 Room Air 21 11/03/18 16:00 97.1 101 20 132/88 (103) 99 11/03/18 16:00 99 11/03/18 15:35 85 21 99 Room Air 21 11/03/18 15:25 89 21 99 Room Air 21 11/03/18 12:00 98.0 99 20 149/79 (102) 95 11/03/18 12:00 101 11/03/18 11:41 84 17 99 Room Air 21 11/03/18 11:31 85 22 99 Room Air 21 11/03/18 09:00 Room Air Intake and Output 11/03/18 11/04/18 19:00 07:00 Intake Total 360 ml 120 ml Output Total 1 ml Balance 359 ml 120 ml Intake Oral 360 ml 120 ml Output Urine Total 1 ml # Voids 1 1 Height (Feet): 5 Height (Inches): 7.00 Weight (Pounds): 160 General Appearance: no apparent distress, alert EENT: PERRL/EOMI, normal ENT inspection Neck: non-tender, normal alignment Cardiovascular: normal rate, regular rhythm Respiratory/Chest: decreased breath sounds Abdomen: normal bowel sounds, non tender, soft Edema: no edema noted Arm (L), no edema noted Arm (R), no edema noted Leg (L), no edema noted Leg (R), no edema noted Pedal (L), no edema noted Pedal (R), no edema noted Generalized Neurologic: alert, oriented x 3 Skin: warm/dry Eladio Alexandra Nov 04, 2018 08:48
[2018-11-04] MEDS: Heparin 5000 units/ml inj SUBQ SCH (08:50)
--- NOTE | 2018-11-04 10:00 | Consultation ---
DATE OF CONSULTATION: 11/03/2018 PAIN MANAGEMENT CONSULTATION CONSULTING PHYSICIAN: Janet Viera M.D. REFERRING PHYSICIAN: Miguel Wyman M.D. PHYSICIAN BOILER SHOP SUPERVISOR: Veronica Dean CHIEF COMPLAINT: Low back pain and B/L hip pain HISTORY OF PRESENT ILLNESS: The patient is a 63-year-old male who is being seen in the [facility] for comprehensive pain management consultation. The patient was admitted under the care of Dr. Wyman due to COPD, left hip and low back pain, which he rates at 5/10. The patient states the pain is a sharp shooting pain. He was started on [place] 5/325 one tablet every four hours as needed for pain. We were consulted so that the patient would have adequate pain control while here in the hospital. PAST MEDICAL HISTORY: COPD. PAST SURGICAL HISTORY: Low back pain, knee surgery, and hernia repair. ALLERGIES: No known drug allergies. MEDICATIONS: Oxycodone. SOCIAL HISTORY: He is a smoker. Denies IV drug abuse at this time. REVIEW OF SYSTEMS: Denies rash, fever, chills, sweating, dizziness, drowsiness, blurred vision, sore throat, or change in weight. No shortness of breath or chest pain. No nausea, vomiting, diarrhea, or blood in the stool or urine. No bowel or bladder incontinence. No dysuria. He is complaining of low back and left hip pain. PHYSICAL EXAMINATION: GENERAL: Alert, awake, and oriented x3. VITAL SIGNS: Blood pressure 149/86, heart rate 87, oxygen saturation 96%, respiratory rate is 18, and temperature 98.2 degrees Fahrenheit. HEENT: PERRLA. NECK: Range of motion is full in all directions. No tenderness to paracervical muscles. No adenopathy. LUNGS: Decreased breath sounds bilaterally. HEART: Regular. ABDOMEN: Benign. BACK: Range of motion is decreased in flexion and extension with CVA tenderness noted. EXTREMITIES: Range of motion is decreased due to the patient's pain and condition. No cyanosis. No clubbing. No edema. Sensory is intact. Reflexes are not obtainable. No adenopathy. ASSESSMENT AND PLAN: This is a 63-year-old female with lumbar degenerative disk disease, lumbar spondylosis, lumbar radiculopathy, left hip pain, history of B/L THR. The patient will be increased to [place] 10/325 one tablet every four hours as needed for severe pain. The patient was discussed with Dr. Viera and Dr. Viera concurred. We will follow the patient. Thank you very much for the courtesy of this consultation. Janet Viera M.D. SHAUNA Dean DR: Amada JOB#: [id number] CC: LETICIA
[2018-11-04 12:00] VITALS: BP 145/90
--- NOTE | 2018-11-04 12:41 | General Progress Note ---
Assessment/Plan Problem List: (1) anxiety d/o (2) Polysubstance dependence ICD Codes: F19.20 - Other psychoactive substance dependence, uncomplicated SNOMED: 13929505 Status: stable Assessment/Plan the pt was provided with louann/st snell prn the pt was educated about smoking risks Subjective Neurologic/Psychiatric: Reports: anxiety, depressed Allergies: Coded Allergies: No Known Allergies (Unverified , 11/23/17) Objective Last 24 Hour Vital Signs Date Time Temp Pulse Resp B/P (MAP) Pulse Ox O2 Delivery O2 Flow Rate FiO2 11/04/18 11:25 89 20 99 Room Air 21 11/04/18 11:18 91 22 97 Room Air 21 11/04/18 09:00 Room Air 11/04/18 08:02 89 20 98 Room Air 21 11/04/18 08:01 87 20 Room Air 21 11/04/18 08:00 97.7 95 20 122/74 (90) 97 11/04/18 08:00 96 11/04/18 07:57 87 20 97 Room Air 21 11/04/18 04:00 94 11/04/18 04:00 97.3 90 18 117/96 (103) 97 11/04/18 03:50 90 18 99 Room Air 21 11/04/18 03:40 91 18 96 Room Air 21 11/04/18 00:00 92 11/04/18 00:00 97.9 88 18 156/74 (101) 100 11/03/18 23:26 101 20 99 Room Air 21 11/03/18 23:16 102 20 97 Room Air 21 11/03/18 21:00 Room Air 11/03/18 20:05 93 20 99 Room Air 21 11/03/18 20:00 98.4 86 18 144/90 (108) 96 11/03/18 20:00 86 11/03/18 19:56 92 20 Room Air 21 11/03/18 19:55 92 20 98 Room Air 21 11/03/18 16:00 97.1 101 20 132/88 (103) 99 11/03/18 16:00 99 11/03/18 15:35 85 21 99 Room Air 21 11/03/18 15:25 89 21 99 Room Air 21 Intake and Output 11/03/18 11/04/18 19:00 07:00 Intake Total 360 ml 120 ml Output Total 1 ml Balance 359 ml 120 ml Intake Oral 360 ml 120 ml Output Urine Total 1 ml # Voids 1 1 Height (Feet): 5 Height (Inches): 7.00 Weight (Pounds): 160 General Appearance: alert, agitated Neurologic: oriented x 3, responsive Dmitry Meza MD Nov 04, 2018 12:41
--- NOTE | 2018-11-04 13:30 | Infectious Diseases Prog Note ---
Assessment/Plan Assessment/Plan A; COPD exacerbation Emphysema P: Continue PO Doxycycline X 3 days Agree with discharge Subjective ROS Limited/Unobtainable: No Constitutional: Reports: no symptoms Respiratory: Reports: shortness of breath, dry cough Cardiovascular: Reports: no symptoms Gastrointestinal/Abdominal: Reports: no symptoms Genitourinary: Reports: no symptoms Allergies: Coded Allergies: No Known Allergies (Unverified , 11/23/17) Objective Vital Signs Last 24 Hour Vital Signs Date Time Temp Pulse Resp B/P (MAP) Pulse Ox O2 Delivery O2 Flow Rate FiO2 11/04/18 12:00 97.5 95 22 145/90 (108) 96 11/04/18 11:25 89 20 99 Room Air 21 11/04/18 11:18 91 22 97 Room Air 21 11/04/18 09:00 Room Air 11/04/18 08:02 89 20 98 Room Air 21 11/04/18 08:01 87 20 Room Air 21 11/04/18 08:00 97.7 95 20 122/74 (90) 97 11/04/18 08:00 96 11/04/18 07:57 87 20 97 Room Air 21 11/04/18 04:00 94 11/04/18 04:00 97.3 90 18 117/96 (103) 97 11/04/18 03:50 90 18 99 Room Air 21 11/04/18 03:40 91 18 96 Room Air 21 11/04/18 00:00 92 11/04/18 00:00 97.9 88 18 156/74 (101) 100 11/03/18 23:26 101 20 99 Room Air 21 11/03/18 23:16 102 20 97 Room Air 21 11/03/18 21:00 Room Air 11/03/18 20:05 93 20 99 Room Air 21 11/03/18 20:00 98.4 86 18 144/90 (108) 96 11/03/18 20:00 86 11/03/18 19:56 92 20 Room Air 21 11/03/18 19:55 92 20 98 Room Air 21 11/03/18 16:00 97.1 101 20 132/88 (103) 99 11/03/18 16:00 99 11/03/18 15:35 85 21 99 Room Air 21 11/03/18 15:25 89 21 99 Room Air 21 Height (Feet): 5 Height (Inches): 7.00 Weight (Pounds): 160 General Appearance: no acute distress HEENT: mucous membranes moist Respiratory/Chest: decreased breath sounds Cardiovascular: normal rate Abdomen: soft, non tender Extremities: no edema Neurologic/Psychiatric: alert, oriented x 3, responsive Microbiology Date/Time Source Procedure Growth Status 11/02/18 13:15 Blood Blood Culture - Preliminary NO GROWTH AFTER 24 HOURS Resulted 11/02/18 13:00 Blood Blood Culture - Preliminary NO GROWTH AFTER 24 HOURS Resulted 11/02/18 13:00 Nasal Nares Influenza Types A,B Antigen (LACY) - Final Complete Current Medications Medications (Trade) Dose Ordered Sig/Santos Route PRN Reason Start Time Stop Time Status Last Admin Dose Admin Acetaminophen (Tylenol) 650 mg Q6H PRN ORAL Mild Pain/Temp > 100.5 11/02/18 18:15 12/02/18 18:14 Acetaminophen/ Hydrocodone Bitart ([place] 10/325) 1 tab Q4H PRN ORAL For moderate Pain 11/03/18 09:15 11/10/18 09:14 11/03/18 20:02 Albuterol/ Ipratropium (Albuterol/ Ipratropium) 3 ml Q4H PRN HHN Shortness of Breath 11/02/18 18:30 11/07/18 18:29 Albuterol/ Ipratropium (Albuterol/ Ipratropium) 3 ml Q4HRT HHN 11/02/18 23:00 11/07/18 22:59 11/04/18 11:18 Doxycycline Monohydrate (Vibramycin) 100 mg EVERY 12 HOURS ORAL 11/02/18 21:00 11/09/18 20:59 11/04/18 08:49 Heparin Sodium (Porcine) (Heparin 5000 units/ml) 5,000 units EVERY 12 HOURS SUBQ 11/02/18 21:00 12/02/18 20:59 11/03/18 20:41 Methylprednisolone Sodium Succinate (Solu-MEDROL) 40 mg EVERY 6 HOURS IVP 11/03/18 00:00 12/03/18 00:00 11/04/18 12:58 Julian Miller MD Nov 04, 2018 13:30
[2018-11-04 16:00] VITALS: BP 147/86
--- NOTE | 2018-11-04 16:31 | Pulmonology Progress Note ---
Assessment/Plan Assessment/Plan Pulmonary Consultation (For Dr Mann) HPI The patient is a 63-year-old male presented after increased difficulty breathing. Patient prior history of COPD. He reports having acute onset of worsening shortness of breath today. He denies any vomiting. No chest pain, no hemoptysis Allergies: No Known Allergies Past Medical History: COPD/Asthma, GERD Hx Asthma: Yes Hx COPD: Yes - emphysema Physical Exam HEENT: NCAT, JVP 6cm, moist mm Chest: Reduced BS bilaterally Heart: Hs1, Hs2, RRR Abdomen: SNTND Extrem: Normal SIGNAL APPRENTICE: Intact Labs noted CXR: nil acute Impression: COPD Exaccerbation GERD Plan: Medrol dosepack Doxycycline OK DC Bronchodilators PPX Subjective ROS Limited/Unobtainable: No Allergies: Coded Allergies: No Known Allergies (Unverified , 11/23/17) Objective Last 24 Hour Vital Signs Date Time Temp Pulse Resp B/P (MAP) Pulse Ox O2 Delivery O2 Flow Rate FiO2 11/04/18 15:17 94 24 98 Room Air 21 11/04/18 15:01 97 24 96 Room Air 21 11/04/18 12:00 97.5 95 22 145/90 (108) 96 11/04/18 12:00 82 11/04/18 11:25 89 20 99 Room Air 21 11/04/18 11:18 91 22 97 Room Air 21 11/04/18 09:00 Room Air 11/04/18 08:02 89 20 98 Room Air 21 11/04/18 08:01 87 20 Room Air 21 11/04/18 08:00 97.7 95 20 122/74 (90) 97 11/04/18 08:00 96 11/04/18 07:57 87 20 97 Room Air 21 11/04/18 04:00 94 11/04/18 04:00 97.3 90 18 117/96 (103) 97 11/04/18 03:50 90 18 99 Room Air 21 11/04/18 03:40 91 18 96 Room Air 21 11/04/18 00:00 92 11/04/18 00:00 97.9 88 18 156/74 (101) 100 11/03/18 23:26 101 20 99 Room Air 21 11/03/18 23:16 102 20 97 Room Air 21 11/03/18 21:00 Room Air 11/03/18 20:05 93 20 99 Room Air 21 11/03/18 20:00 98.4 86 18 144/90 (108) 96 11/03/18 20:00 86 11/03/18 19:56 92 20 Room Air 21 11/03/18 19:55 92 20 98 Room Air 21 Intake and Output 11/03/18 11/04/18 19:00 07:00 Intake Total 360 ml 120 ml Output Total 1 ml Balance 359 ml 120 ml Intake Oral 360 ml 120 ml Output Urine Total 1 ml # Voids 1 1 Microbiology Date/Time Source Procedure Growth Status 11/02/18 13:15 Blood Blood Culture - Preliminary NO GROWTH AFTER 24 HOURS Resulted 11/02/18 13:00 Blood Blood Culture - Preliminary NO GROWTH AFTER 24 HOURS Resulted 11/02/18 13:00 Nasal Nares Influenza Types A,B Antigen (LACY) - Final Complete Current Medications Medications (Trade) Dose Ordered Sig/Santos Route PRN Reason Start Time Stop Time Status Last Admin Dose Admin Acetaminophen (Tylenol) 650 mg Q6H PRN ORAL Mild Pain/Temp > 100.5 11/02/18 18:15 12/02/18 18:14 Acetaminophen/ Hydrocodone Bitart ([place] 10/325) 1 tab Q4H PRN ORAL For moderate Pain 11/03/18 09:15 11/10/18 09:14 11/03/18 20:02 Albuterol/ Ipratropium (Albuterol/ Ipratropium) 3 ml Q4H PRN HHN Shortness of Breath 11/02/18 18:30 11/07/18 18:29 Albuterol/ Ipratropium (Albuterol/ Ipratropium) 3 ml Q4HRT HHN 11/02/18 23:00 11/07/18 22:59 11/04/18 14:58 Doxycycline Monohydrate (Vibramycin) 100 mg EVERY 12 HOURS ORAL 11/02/18 21:00 11/09/18 20:59 11/04/18 08:49 Heparin Sodium (Porcine) (Heparin 5000 units/ml) 5,000 units EVERY 12 HOURS SUBQ 11/02/18 21:00 12/02/18 20:59 11/03/18 20:41 Methylprednisolone Sodium Succinate (Solu-MEDROL) 40 mg EVERY 6 HOURS IVP 11/03/18 00:00 12/03/18 00:00 11/04/18 12:58 David Schwartz MD Nov 04, 2018 16:31
--- NOTE | 2018-11-05 10:23 | Discharge Summary ---
Discharge Summary Discharge Summary _ DATE OF ADMISSION: 11/02/2018 DATE OF DISCHARGE: 11/04/2018 DISCHARGED BY: Dr. Miguel Perera CONSULTANTS: Dr. Julian Schwartz [facility] COURSE: Patient is a 63-year-old male, who presented to ED after increased difficulty breathing. Reported history of COPD. He reported acute onset of worsening shortness of breath. He denied any vomiting. Had increased nonproductive cough. He had shortness of breath for the past hour. Evaluation at the ED, he was saturating 94% on room air. Blood work did not show any leukocytosis, hemoglobin and hematocrit were stable. Chest x-ray showed emphysematous changes without evidence of pneumonia. EKG showed normal sinus rhythm without acute ST to T wave changes. He was given breathing treatment and IV Solu-Medrol. He continued to have wheezing and shortness of breath. He was then admitted for COPD exacerbation. He was given nebulizer treatments. He was continued on IV steroids. That has history of anxiety as well as drug and alcohol abuse in the past. He had cognitive impairment and had poor insight to his medical condition. He was reluctant to take psychiatric medications. He was given Ativan. He was educated about smoking risks. He was given pain management for his back pain. He was breathing better and was saturating well on room air. He was cleared for discharge to continue p.o. antibiotics. FINAL DIAGNOSES: Acute COPD exacerbation Emphysema GERD Lumbar disc disease Lumbar spondylosis Lumbar radiculopathy left hip pain Anxiety disorder Polysubstance dependence DISPOSITION: Patient was discharged home. DISCHARGE INSTRUCTIONS: Follow-up in a week. I have been assigned to dictate discharge summary on this account, and I was not involved in the patient's management. Poornima Severino NP Nov 05, 2018 10:23
--- NOTE | 2018-11-10 12:51 | Diagnostic Imaging Report ---
APPROVED REPORT CPT Code: 44880 Present Symptoms Shortness of breath Comments: Cough BILATERAL: Imaging reveals a patent deep venous system bilaterally. There is no evidence of thrombus within the femoral, popliteal or tibial segments. The greater saphenous veins are also within normal limits. Doppler indicates normal spontaneous flow within these segments.
== END 2018-11-04 17:33 | disposition home or self-care (01) | DRG 192 ==
LOC: EMR 13:50 → 2E 13:56 → EDBEDREQ 16:41
DX: J43.9 Emphysema, unspecified (principal); K21.9 Gastro-esophageal reflux disease without esophagitis; Z96.642 Presence of left artificial hip joint; Z87.891 Personal history of nicotine dependence; M47.896 Other spondylosis, lumbar region; M51.16 Intervertebral disc disorders with radiculopathy, lumbar region; F41.9 Anxiety disorder, unspecified; F10.21 Alcohol dependence, in remission; F19.21 Other psychoactive substance dependence, in remission
CPT/HCPCS: 36415; 36600; 71045; 80053; 81003; 82803; 84484; 85025; 85610; 85730; 86710; 87040; 93005; 93970; 94640; 94664; 96365; 96375; 99285; J7620